=== PATIENT | female | born 1990 | race American Indian/Alaskan Native ===

== ENCOUNTER 2021-02-27 22:34 | Emergency (ER) | payer SELFPAY ==
[2021-02-27] MEDS ORDERED: HALOPERIDOL LACTATE 5 MG/1 ML INJ IM ONE (22:37)
[2021-02-27 22:40] VITALS: BP 104/57
--- NOTE | 2021-02-27 22:42 | Emergency Department Report ---
ED General Adult HPI - General Stated complaint: CHEST PAIN Time Seen by Provider: 02/27/21 22:37 - History of Present Illness Initial comments: Patient presents secondary to chest pain. She states she been having chest pain all day. It is severe. She is never had pain like this before. She believes that she is having a heart attack or something. Patient states that the pain is diffuse. It woke her from sleep. It has been constant. History is difficult from the patient due to her histrionic presentation. She denies trauma. She denies cough. She denies fever. She states that the pain is constant. It is not pleuritic. Remainder the history is obtained after the patient has been treated and calm down. Patient does not know what triggered the pain. Again, there was no trauma. Pain was diffuse. She had no back pain. It did not radiate or migrate. It was not exertional. It was not positional. - Related Data Previous Rx's Medication Instructions Recorded Last Taken Type Ibuprofen [Motrin] 800 mg PO Q8HR PRN #20 tablet 02/28/21 Unknown Rx Allergies Allergy/AdvReac Type Severity Reaction Status Date / Time No Known Allergies Allergy Verified 02/27/21 22:40 ED Review of Systems ROS: Stated complaint: CHEST PAIN Other details as noted in HPI Comment: All other systems reviewed and negative Constitutional: denies: fever Eyes: denies: vision change ENT: denies: throat pain Respiratory: denies: cough Cardiovascular: as per HPI Endocrine: denies: unexplained weight loss Gastrointestinal: denies: abdominal pain Genitourinary: denies: dysuria Musculoskeletal: denies: back pain Skin: denies: rash Neurological: denies: headache Hematological/Lymphatic: denies: easy bruising ED Past Medical Hx - Past Medical History Previous Medical History?: No - Family History Family history: no significant - Medications Home Medications: Home Medications Medication Instructions Recorded Confirmed Last Taken Type Ibuprofen [Motrin] 800 mg PO Q8HR PRN #20 tablet 02/28/21 Unknown Rx ED Physical Exam - General Limitations: Physical Limitation (Hyperventilation and anxiety), Other (Pulse ox noted and normal) General appearance: alert, other (Patient is writhing and rocking back and forth in a chair. She is speaking in a very high-pitched voice. She is tearful and hyperventilating. She will not answer questions cogently.) - Head Head exam: Present: atraumatic, normocephalic - Eye Eye exam: Present: normal appearance, EOMI. Absent: scleral icterus - ENT ENT exam: Present: normal exam, mucous membranes moist, normal external ear exam - Neck Neck exam: Present: normal inspection. Absent: meningismus - Respiratory Respiratory exam: Present: normal lung sounds bilaterally. Absent: respiratory distress - Cardiovascular Cardiovascular Exam: Present: regular rate, normal rhythm - GI/Abdominal GI/Abdominal exam: Present: soft. Absent: tenderness - Extremities Exam Extremities exam: Present: normal capillary refill. Absent: calf tenderness - Back Exam Back exam: Absent: CVA tenderness (R), CVA tenderness (L) - Neurological Exam Neurological exam: Present: alert, oriented X3, CN II-XII intact, reflexes normal, other (Exam was completed after patient had been treated). Absent: motor sensory deficit - Psychiatric Psychiatric exam: Present: anxious - Skin Skin exam: Present: warm, dry ED Course Vital Signs 02/27/21 22:35 Temperature 97.7 F Pulse Rate 97 H Respiratory 17 Rate Blood Pressure 104/57 [Right] O2 Sat by Pulse 97 Oximetry - Reevaluation(s) Reevaluation #1: 02/27/21 22:41 Old records reviewed. EKG and chest x-ray were ordered. Medications were ordered. 02/28/21 00:36 Work-up was noted and the patient was discharged ED Medical Decision Making - EKG Data -: EKG Interpreted by Me - EKG Data 02/28/21 00:12 EKG shows a normal sinus rhythm at 72. Intervals normal including a QRS of 85 and a QT corrected of 443. Patient has no ST elevation to suggest any. There is no ST depression suggestive of ischemia. There is no ectopy noted. This is a normal EKG. There is no old EKG for comparison. - Radiology Data Radiology results: report reviewed - Medical Decision Making Patient presents with very nonspecific chest pain. There is no trauma to suggest acute fracture or injury. She did not have radiographic evidence of pneumonia or pneumothorax. She did not have a wide mediastinum or pulse deficit suggest aortic dissection. There is no immobility or unilateral leg pain. I do not believe this represents PE. Patient certainly has no risk factors for ACS and has a normal EKG. She was treated symptomatically and was improved. She was subsequently discharged. Etiology for the pain remains unclear. Critical Care Time: No Critical care attestation.: If time is entered above; I have spent that time in minutes in the direct care of this critically ill patient, excluding procedure time. ED Disposition Clinical Impression: Precordial chest pain Disposition: HOME / SELF CARE / HOMELESS Is pt being admited?: No Condition: Stable Instructions: Nonspecific Chest Pain, Adult Additional Instructions: Drink any water. Return for problems. Follow-up with your regular doctor for recheck. If you do not have a regular doctor, follow-up with the referral physician. Prescriptions: Ibuprofen [Motrin] 800 mg PO Q8HR PRN #20 tablet PRN Reason: Pain, Moderate (4-6) Referrals: PRIMARY CARE, [Referring] - 3-5 Days DION HATCH MD [Staff Physician] - 3-5 Days
--- NOTE | 2021-02-27 23:43 | XRay Report ---
XR chest routine 2V INDICATION / CLINICAL INFORMATION: cp. COMPARISON: None available. FINDINGS: SUPPORT DEVICES: None. HEART /PULMONARY VASCULATURE: No significant abnormality. LUNGS / PLEURA: No significant pulmonary or pleural abnormality. No pneumothorax. ADDITIONAL FINDINGS: Prominent dextroscoliosis of the thoracic spine. No acute osseous findings. IMPRESSION: 1. No acute findings. Signer Name: Mukul Goel MD Signed: 02/27/2021 11:38 PM Workstation Name: [id number]
--- NOTE | 2021-03-01 10:24 | Electrocardiograph Report ---
[facility] Test Date: 2021-02-27 Test Time: 22:59:59 Pat Name: PERLA WOODSON Department: Room: Gender: F Manager [employer]: [place] : 1990 Requested By: KIERRA YEPEZ Order Number: [id number] Reading MD: Penny Boss Measurements Intervals [place] Rate: 72 P: 81 [place]: 167 QRS: 84 QRSD: 85 T: 74 QT: 403 QTc: 443 Interpretive Statements Sinus rhythm No previous ECG available for comparison Electronically Signed On 03-01-2021 10:24:40 EST by Penny Boss
== END 2021-02-28 00:13 | disposition home or self-care (01) ==
LOC: ED 22:34
DX: R07.2 Precordial pain (principal)
CPT/HCPCS: 71046; 93005; 96372; 99283; J1630